=== PATIENT | male | born 1945 | race Caucasian/White ===

== ENCOUNTER 2019-09-04 10:18 | Day surgery (SDC) | payer MEDICARE, OTHER ==
[~2019-09-04 10:18] MED LIST: KETOROLAC TROMETHAMINE 0.45% 4 DROP/0.4 ML DROPERETTE OS PRN
[2019-09-04] MEDS: CYCLOPENTOLATE 0.2%/PHENYLEPHRINE 1% OPH SOLN 2 ML OS PRN ×3 (10:33→10:53)
[2019-09-04] MEDS: TROPICAMIDE 1% OPH SOLN 15 ML OS PRN ×3 (10:33→10:53)
[2019-09-04] MEDS: BESIFLOXACIN HCL 0.6% OPH SUSP 5 ML BOTTLE OS PRN ×6 (10:33→11:20)
[2019-09-04] MEDS: TETRACAINE HCL 0.5% OPH SOLN 4 ML OS PRN ×3 (10:34→10:58)
[2019-09-04] MEDS ORDERED: ONDANSETRON HCL INJ/PF 4 MG/2 ML SDV ONE (10:36)
[2019-09-04] MEDS ORDERED: FENTANYL CITRATE INJ/PF 100 MCG/2 ML AMPUL ONE (10:37)
[2019-09-04] MEDS ORDERED: MIDAZOLAM 2 MG/2 ML INJ ONE (10:37)
[2019-09-04] MEDS: CHONDR SU A NA/HYALUR INTRAOC KIT (SURGICARE) ONE ×2 (11:07)
[2019-09-04] MEDS: EPINEPHRINE INJ/PF 1 MG/1 ML AMPULE ONE ×2 (11:07)
[2019-09-04] MEDS: LIDOCAINE 1%/PHENYLEPHRINE 1.5% 1 ML VIAL ONE ×2 (11:07)
[2019-09-04] MEDS: DORZOLAMIDE HCL 2%/TIMOLOL MALEAT 0.5% OPH SOLN 10 ML OS PRN ×4 (11:17→11:20)
[2019-09-04] MEDS: TOBRAMYCIN SULFATE/DEXAMETH OPH OINTMENT 3.5 GM ONE ×4 (11:17→11:20)
== END 2019-09-04 11:55 | disposition home or self-care (01) ==
LOC: SC 10:18
PROVIDERS: ATTEND Ophthalmology
DX: H25.12 Age-related nuclear cataract, left eye (principal); Z79.82 Long term (current) use of aspirin; Z79.899 Other long term (current) drug therapy; Z87.891 Personal history of nicotine dependence; I25.10 Atherosclerotic heart disease of native coronary artery without angina pectoris; I11.9 Hypertensive heart disease without heart failure; I49.9 Cardiac arrhythmia, unspecified
CPT/HCPCS: 66984; V2788; J2250; J3490 ×2; A9270 ×2; J0171; J3010; J2405; J2370; 142